=== PATIENT | male | born 1945 | race Caucasian/White ===

== ENCOUNTER 2017-02-14 08:00 | Outpatient (CLI) | payer MEDICARE, OTHER ==
[2017-02-14 12:55] LABS: BASOPHILS # (AUTO) 0.1 10^3/uL (0.0-0.1); BASOPHILS % (AUTO) 0.7 %; EOSINOPHILS # (AUTO) 0.5 10^3/uL (0.0-0.7); HCT - HEMATOCRIT 43.4 % (42.0-52.0); HGB - HEMOGLOBIN 14.7 g/dL (14.0-18.0); LYMPHOCYTES # (AUTO) 1.8 10^3/uL (1.5-3.5); LYMPHOCYTES % (AUTO) 25.3 %; MEAN CORPUSCULAR HEMOGLOBIN 31.5 pg (27.0-31.0); MEAN CORPUSCULAR HGB CONC 33.8 g/dL (32.0-36.0); MEAN CORPUSCULAR VOLUME 93.3 fL (80.0-94.0); MEAN PLATELET VOLUME 8.6 fL (7.4-11.4); MONOCYTES # (AUTO) 0.7 10^3/uL (0.0-1.0); MONOCYTES % (AUTO) 9.6 %; NEUTROPHILS % (AUTO) 57.4 %; RED BLOOD COUNT 4.65 10^6/uL (4.70-6.10); RED CELL DISTRIBUTION WIDTH 12.9 % (12.0-15.0)
[2017-02-14 13:28] LABS: ALBUMIN/GLOBULIN RATIO 1.5 (1.0-2.2); BUN - BLOOD UREA NITROGEN 19 mg/dL (6-20); CALCIUM 9.3 mg/dL (8.5-10.3); CARBON DIOXIDE - CO2 28 mmol/L (21-32); CHLORIDE 104 mmol/L (101-111); CHOL/HDL RATIO 3.2 (<5.0); CHOLESTEROL 198 mg/dL; CREATININE 1.1 mg/dL (0.6-1.2); GFR - MDRD 66 (>89); GLUCOSE 84 mg/dL (70-100); HDL CHOLESTEROL 62 mg/dL; LDL/HDL RATIO 1.9 (<3.6); POTASSIUM 4.2 mmol/L (3.5-5.0); SODIUM 140 mmol/L (135-145); TOTAL PROTEIN 7.6 g/dL (6.7-8.2); TRIGLYCERIDES 91 mg/dL; VLDL CHOLESTEROL 18 mg/dL
== END 2017-02-14 23:59 ==
LOC: LAB.WCP 08:00
PROVIDERS: ATTEND Family Medicine
DX: E78.5 Hyperlipidemia, unspecified (principal)
CPT/HCPCS: 36415; 80053; 80061; 84443; 85025

== ENCOUNTER 2017-07-07 08:35 | Outpatient (CLI) | payer MEDICARE, OTHER | END 2017-07-07 08:36 | disposition home or self-care (01) | LOC: SC 08:35 | PROVIDERS: ATTEND Nurse Practitioner Family | DX: G47.33 Obstructive sleep apnea (adult) (pediatric) (principal) | CPT/HCPCS: 99214; G0463; 99212 ==

== ENCOUNTER 2018-03-04 08:00 | Outpatient (CLI) | payer MEDICARE, OTHER ==
[2018-03-04 13:47] LABS: ALBUMIN 3.7 g/dL (3.2-5.5); ALBUMIN/GLOBULIN RATIO 1.1 (1.0-2.2); ALKALINE PHOSPHATASE 52 IU/L (42-121); ALT ALANINE AMINOTRANSFERASE 20 IU/L (10-60); AST ASPARTATE AMINOTRANSFERASE 23 IU/L (10-42); BILIRUBIN,TOTAL 0.5 mg/dL (0.2-1.0); BUN - BLOOD UREA NITROGEN 25 mg/dL (6-20); CALCIUM 9.1 mg/dL (8.5-10.3); CARBON DIOXIDE - CO2 25 mmol/L (21-32); CHLORIDE 104 mmol/L (101-111); CHOL/HDL RATIO 3.2 (<5.0); CHOLESTEROL 168 mg/dL; CREATININE 1.4 mg/dL (0.6-1.2); GFR - MDRD 50 (>89); GLUCOSE 85 mg/dL (70-100); HDL CHOLESTEROL 53 mg/dL; LDL CHOLESTEROL,CALCULATED 99 mg/dL; LDL/HDL RATIO 1.9 (<3.6); SODIUM 137 mmol/L (135-145); TOTAL PROTEIN 7.2 g/dL (6.7-8.2); VLDL CHOLESTEROL 16 mg/dL
== END 2018-03-04 08:01 | disposition home or self-care (01) ==
LOC: LAB.WCP 08:00
PROVIDERS: ATTEND Family Medicine
DX: E55.9 Vitamin D deficiency, unspecified (principal); I10 Essential (primary) hypertension; E04.1 Nontoxic single thyroid nodule; E78.5 Hyperlipidemia, unspecified
CPT/HCPCS: 36415; 80053; 80061; 82306; 83721; 84443

== ENCOUNTER 2018-03-19 08:17 | Outpatient (CLI) | payer MEDICARE, OTHER ==
[2018-03-19 12:46] LABS: CALCIUM 8.9 mg/dL (8.5-10.3); CREATININE 1.1 mg/dL (0.6-1.2)
== END 2018-03-19 08:18 ==
LOC: LAB.WCP 08:17
PROVIDERS: ATTEND Family Medicine
DX: I12.9 Hypertensive chronic kidney disease with stage 1 through stage 4 chronic kidney disease, or unspecified chronic kidney disease (principal); N18.9 Chronic kidney disease, unspecified
CPT/HCPCS: 36415; 80048

== ENCOUNTER 2018-05-18 08:08 | Outpatient (CLI) | payer MEDICARE, OTHER ==
--- NOTE | 2018-05-18 11:57 | Ultrasound Report ---
Reason: SYNCOPE AND COLLAPSE,ESSENTIAL HYPERTENSION Procedure Date: 05/18/2018 Accession Number: [id number] / [id number] Procedure: US - Carotid Doppler Complete CPT Code: FULL RESULT: EXAM: BILATERAL CAROTID AND VERTEBRAL ARTERY DUPLEX DOPPLER ULTRASOUND: EXAM DATE: 05/18/2018 08:59 AM CLINICAL HISTORY: Syncope and collapse, hyperlipidemia, essential hypertension. COMPARISON: None. TECHNIQUE: Grayscale imaging, color Doppler, and duplex spectral Doppler were used to evaluate the carotid and vertebral arteries bilaterally. Static images were obtained. FINDINGS: Minimally echogenic, subjectively insignificant plaque is identified at the right carotid bulb. No significant plaque is identified in the right or left common or internal carotid arteries. Normal antegrade flow is present in bilateral vertebral arteries. VELOCITIES (cm/sec): Right CCA mid: PSV 89 cm/sec CCA dist: PSV 79 cm/sec ICA prox: PSV 90 cm/sec, EDV 15 cm/sec ICA mid: PSV 85 cm/sec, EDV 20 cm/sec ICA dist: PSV 63 cm/sec, EDV 21 cm/sec ECA: PSV 103 cm/sec Vert: PSV 35 cm/sec ICA/CCA: 1.0 Left CCA mid: PSV 84 cm/sec CCA dist: PSV 86 cm/sec ICA prox: PSV 50 cm/sec, EDV 13 cm/sec ICA mid: PSV 64 cm/sec, EDV 16 cm/sec ICA dist: PSV 56 cm/sec, EDV 22 cm/sec ECA: PSV 73 cm/sec Vert: PSV 52 cm/sec ICA/CCA: 0.74 ICA diameter stenosis: Right: <50% by velocity and <70% by NASCET criteria. Left: <50% by velocity and <70% by NASCET criteria. IMPRESSION: 1. No significant bilateral carotid artery plaquing. 2. In the right carotid artery there are no elevated carotid artery velocities to suggest hemodynamically significant stenosis. 3. In the left carotid artery there are no elevated carotid artery velocities to suggest hemodynamically significant stenosis. 4. Normal antegrade flow is present in bilateral vertebral arteries. General Recommendations: Stenosis =50% ICA - Follow-up ultrasound 6-12 months Stenosis <50% ICA - High Risk Patient with plaque - Follow-up ultrasound 1-2 years Normal Study but High Risk Patient - Follow-up ultrasound 3-5 years Management recommendations and diagnostic criteria are based on current IAC endorsed standards in Carotid Artery Stenosis: Grayscale and Doppler Ultrasound Diagnosis. Validated velocity measurements with angiographic measurements and velocity criteria are extrapolated from diameter data as defined by the Society of Radiologists in Ultrasound Consensus Conference Radiology 2003; 229;340-346. RADIA
== END 2018-05-18 08:09 | disposition home or self-care (01) ==
LOC: DI 08:08
PROVIDERS: ATTEND Family Medicine
DX: R55 Syncope and collapse (principal); I10 Essential (primary) hypertension; E78.5 Hyperlipidemia, unspecified
CPT/HCPCS: 93306; 93880

== ENCOUNTER 2018-07-21 07:21 | Outpatient (CLI) | payer MEDICARE, OTHER | END 2018-07-21 07:22 | disposition short-term general hospital (02) | LOC: EMS 07:21 | PROVIDERS: ATTEND Surgery | DX: R55 Syncope and collapse (principal) | CPT/HCPCS: A0425; A0427; A0888 ==

== ENCOUNTER 2018-08-12 08:35 | Outpatient (CLI) | payer MEDICARE, OTHER | END 2018-08-12 08:36 | disposition home or self-care (01) | LOC: SC 08:35 | PROVIDERS: ATTEND Nurse Practitioner Family | DX: G47.33 Obstructive sleep apnea (adult) (pediatric) (principal) | CPT/HCPCS: 99214; G0463; 99212 ==

== ENCOUNTER 2019-07-07 15:08 | Outpatient (CLI) | payer MEDICARE, OTHER ==
[2019-07-07 16:16] VITALS: BP 110/64
--- NOTE | 2019-07-07 16:16 | SLEEP CARE CONSULTATION ---
Information from patient questionnaire entered by Shirley Lemos. I have reviewed and concur with the information entered by Shirley Lemos. This document represents the service I personally performed and the decisions made by me, Mirna Vazquez, RN, MSN, CANNERY TENDER ENGINEER. History of Present Illness Previous diagnosis: Moderate, Obstructive Sleep Apnea-Hypopnea Syndrome AHI: 15.6 Reason for follow up: annual (last seen 2018) Equipment type: CPAP Equipment obtained from: [employer] Mask style: Nasal (N20) Mask brand: Resmed Backup mask available: Yes Last cushion change: 2 weeks CPAP Compliance Data - Data Reviewed with Patient Average duration of nightly device use: 6.4 Compliance rate %: 99.4 (180 days) Current pressure setting (cmH2O): 4-6 Humidity settin Heated hose settin Average residual AHI: 3.9 Average large leak: 3 sec Subjective Patient concerns: denies: aerophagia, mask discomfort, air blowing in eyes, mask leak noise, condensation in mask/hose, nasal congestion, dry mouth, nose, throat, epistaxis Observed to snore while using device: Yes (occasionally) Current pressure setting perceived as: comfortable On therapy, patient: reports: sleeping better, awakening more refreshed, being more awake and alert during the day, more rested overall. denies: drowsiness while driving Initial [place] Sleepiness Scale score: 11 Current [place] Sleepiness Scale score: 7 Allergies and Home Medications Known drug allergies: No Home medication list reviewed: Yes Allergy and home medication list: Lisniopril 20mg tab one daily Mobic 15mg tab one prn daily Multivitamins Tab one daily Zyrtec Allergy (Cetirizine) 10mg tab one daily Vitamin D 2000unit tab two daily Review of Systems Review of systems same as previous: No (evaluated by lock plater for sycope - heart loop recorder implant) Physical Exam Blood Pressure: 110/64 Cuff size: long Heart Rate: 79 O2 Saturation: 96 Height: 5 ft 9.5 in Weight: 176 lb 3.2 oz Body Mass Index: 25.6 BMI Classification: Overweight Impression and Plan 1. Obstructive Sleep Apnea-Hypopnea Syndrome, moderate, with good treatment compliance and good apnea control. On CPAP therapy, the patient has better sleep quality and is more rested overall with increased sleep length of one hour. He is unsure if increased sleep length is due to new mask and improved comfort. 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 I had impressed the use of CPAP use with all sleep for maximum benefit of his treatment. For his snore, I will slightly increase his autoCPAP range to 5-7cmH20. I showed him how to upload new pressure range on sample CPAP. He is to contact me if the pressure change is uncomfortable. Yane cruz's apnea severity and rationale for treatment to reduce apnea, improve sleep quality and reduce cardiovascular and cerebrovascular events was reviewed. I also reviewed the benefit of consistent device use of CPAP for his hypertension. Since his apnea is more severe on his back, he was advised to avoid supine sleep if unable to use CPAP. * * Change CPAP pressure to 5-7 cmH2O * Notify me if snoring with mask or feeling that the pressure is too much or too little * Attempt to lose some weight * Return for follow up in 1 year , or sooner if concerns arise I spent 100% of this 25 minute visit face to face with the patient with greater than 50% of this was spent time counseling the patient and coordination of care.
== END 2019-07-07 15:09 | disposition home or self-care (01) ==
LOC: SC 15:08
PROVIDERS: ATTEND Nurse Practitioner Family
DX: G47.33 Obstructive sleep apnea (adult) (pediatric) (principal)
CPT/HCPCS: 99214; G0463; 99212

== ENCOUNTER 2020-06-07 13:44 | Outpatient (CLI) | payer MEDICARE, OTHER ==
[2020-06-07 14:42] VITALS: BP 120/60
--- NOTE | 2020-06-07 14:42 | SLEEP CARE CONSULTATION ---
Information from patient questionnaire entered by Shirley Lemos. I have reviewed and concur with the information entered by Shirley Lemos. This document represents the service I personally performed and the decisions made by me, Mirna Vazquez, RN, MSN, EDUCATIONAL PROGRAM ASSISTANT. History of Present Illness Service Date and Time: 06/07/2020 1344 Previous diagnosis: Moderate, Obstructive Sleep Apnea-Hypopnea Syndrome AHI: 15.6 (in 2010) Reason for follow up: annual Equipment type: CPAP Equipment obtained from: [employer] (getting supplies as neede) Mask style: Nasal (N20) Backup mask available: Yes (old mask) Last cushion change: every 2 weeks Prior sleep studies: Yes Year and Where: 2010 - [facility] Type of Sleep Study: Polysomnography CPAP Compliance Data - Data Reviewed with Patient Average duration of nightly device use: 6.25 Compliance rate %: 98.9 (180 days) Current pressure setting (cmH2O): 5-7 Humidity settin Heated hose settin Average residual AHI: 3.0 Average large leak: 2 sec Subjective Patient concerns: reports: other (was sleeping through the night until last couple months when started waking after 4-5 hours and generally is able to go back to sleep. But he does not always put mask back on after using bathroom and sleeps on side. ). denies: aerophagia, mask discomfort, air blowing in eyes, mask leak noise, condensation in mask/hose, nasal congestion, dry mouth, nose, throat, epistaxis Observed to snore while using device: Yes (only when forgets to mask on) Current pressure setting perceived as: comfortable On therapy, patient: reports: sleeping better, awakening more refreshed, being more awake and alert during the day, more rested overall. denies: drowsiness while driving Initial [place] Sleepiness Scale score: 11 (in 2010) Current [place] Sleepiness Scale score: 9 Allergies and Home Medications Known drug allergies: No Home medication list reviewed: Yes (new eye Preservision vitamin with luetin added ) Review of Systems Review of systems same as previous: No (recently diagnosed with cataracts and referred to surgeon, new vitamins) Physical Exam Blood Pressure: 120/60 Cuff size: regular Heart Rate: 76 O2 Saturation: 94 Height: 5 ft 9.5 in Weight: 170 lb 12.8 oz Weight change since last visit: lost 5 pounds Body Mass Index: 24.8 BMI Classification: Healthy weight Impression and Plan 1. Obstructive Sleep Apnea-Hypopnea Syndrome, moderate, with good treatment compliance and good apnea control. On CPAP therapy, the patient has better sleep quality and is more rested overall. Patient has been taking off mask after using the bathroom. His sleep study was reviewed. He is advised to put his mask back on after waking to use the bathroom to reduce apnea risk. I explained even though he sleeps on his side where his apnea is mild ( supine is severe) there is increased risk of apnea in REM sleep which is more prevalent in later sleep. Using his mask up until the time he awakens will increase refreshment of sleep. He has lost some weight and his current pressure range should accommodate for goal of losing 5 more pounds. Symptoms to report for pressure change with rationale explained. Patient's apnea severity and rationale for treatment to reduce apnea, improve sleep quality and reduce cardiovascular and cerebrovasc ular events was reviewed. I also reviewed the benefit of consistent device use of CPAP for hypertension. Take CPAP machine with him for any surgery with rationale explained. He is to discuss with his eye surgeon if needed for his upcoming surgery. * Continue CPAP pressure at 5-7 cmH2O * Use CPAP with all sleep. * Notify me if snoring with mask or feeling that the pressure is too much or too little * Call this office if any problems using CPAP * Return for follow up in 1 year, or sooner if concerns arise Visit Type: In Office Time Spent with Patient (minutes): 28 Provider Statement: I spent 100% of the Face to Face Visit with the patient with greater than 50% spent counseling the patient and coordination of care.
== END 2020-06-07 13:45 | disposition home or self-care (01) ==
LOC: SC 13:44
PROVIDERS: ATTEND Nurse Practitioner Family
DX: G47.33 Obstructive sleep apnea (adult) (pediatric) (principal)
CPT/HCPCS: 99214; G0463; 99212

== ENCOUNTER 2020-06-12 16:21 | Outpatient (CLI) | payer MEDICARE, OTHER | END 2020-06-12 16:22 | disposition home or self-care (01) | LOC: COV 16:21 | PROVIDERS: ATTEND Family Medicine | DX: Z20.828 Contact with and (suspected) exposure to other viral communicable diseases (principal) ==

== ENCOUNTER 2020-06-24 14:07 | Outpatient (CLI) | payer MEDICARE, OTHER | END 2020-06-24 14:08 | disposition short-term general hospital (02) | LOC: EMS 14:07 | PROVIDERS: ATTEND Surgery | DX: R55 Syncope and collapse (principal) | CPT/HCPCS: A0425; A0429 ==

== ENCOUNTER 2021-05-30 10:11 | Outpatient (CLI) | payer MEDICARE, OTHER ==
[2021-05-30 10:56] VITALS: BP 106/57
--- NOTE | 2021-05-30 10:56 | SLEEP CARE CONSULTATION ---
Information from patient questionnaire entered by Ute Batista. I have reviewed and concur with the information entered by Ute Batista. This document represents the service I personally performed and the decisions made by me, Margareth Suarez ARNP. History of Present Illness Service Date and Time: 05/30/2021 1011 Previous diagnosis: Moderate, Obstructive Sleep Apnea-Hypopnea Syndrome AHI: 15.6 (in 2010) Reason for follow up: annual Equipment type: CPAP Equipment obtained from: [facility] (getting supplies as needed) Mask style: Nasal (N20) Backup mask available: Yes (Old mask) Last cushion change: 1 week ago Prior sleep studies: Yes Year and Where: 2010 [facility] Type of Sleep Study: Polysomnography HPI additional information: SAM PATIÑO was diagnosed to have moderate, AHI 15.6, obstructive sleep apnea-hypopnea syndrome and returned today for CPAP therapy annual follow-up. Sleep Study - Results Type of Sleep Study: Polysomnography Prior sleep studies: Yes Year and Where: 2010 [facility] CPAP Compliance Data - Data Reviewed with Patient Average duration of nightly device use: 5 hours 47 minutes Compliance rate %: 96.1 Current pressure setting (cmH2O): 5-7 Humidity settin Heated hose settin Average residual AHI: 3.1 Central apnea: 0.2 Obstructive apnea: 0.3 Hypopnea: 2.6 Average large leak: 1 second Subjective Patient concerns: reports: aerophagia (having GI issues, most likely not due to CPAP). denies: mask discomfort, air blowing in eyes, mask leak noise, condensation in mask/hose, nasal congestion, dry mouth, nose, throat, epistaxis, other Observed to snore while using device: Yes (once in a while, per ) Current pressure setting perceived as: too low On therapy, patient: reports: sleeping better, awakening more refreshed, being more awake and alert during the day, more rested overall. denies: drowsiness while driving Initial [place] Sleepiness Scale score: 11 (in 2010) Current [place] Sleepiness Scale score: 9 Allergies and Home Medications Home medication list reviewed: Yes (Pantoprazole for GI issue) Review of Systems Review of systems same as previous: No (GI issues (diarrhea/gas/bloating/aching in stomach)) Physical Exam Blood Pressure: 106/57 Cuff size: wrist Heart Rate: 71 O2 Saturation: 95 Height: 5 ft 9.5 in Weight: 165 lb Body Mass Index: 24.0 BMI Classification: Healthy weight Impression and Plan 1. Obstructive Sleep Apnea-Hypopnea Syndrome, moderate, with good treatment compliance and good apnea control. On CPAP therapy, the patient has better sleep quality and is more rested overall. His has complained of occasional snoring with his mask on. To resolve snore, the CPAP pressure will be changed to 6-8 cmH20. Patient advised to contact this office if pressure change uncomfortable or if pressure change does not resolve snore. I informed the patient that [employer] has a recall on several devices like the patients machine. Patient was encouraged to register their device online with [employer] for the recall to see if their device is affected. If their device is affected they should start a claim. Patient denies any black particles seen in machine or hoses, any unusual odors coming from device. Patient has not experienced any physical symptoms such as upper airway irritation, headache, skin or eye irritation, asthma, nausea/vomiting, difficulty breathing or chest pain. Patient informed that they may use an inline CPAP filter that they can obtain online to reduce chance of any particles being inhaled or ingested. We discussed thoroughly the health risks of not using the CPAP versus continuing use with the filter in place. If patient is not able to sleep due to waking up choking, gasping for air or other respiratory distress that they may decide to continue using it until it is either replaced or repaired. Since the patients current machine is at least 5 years old the patient is opting to update their device with a device that is not on the recall. Patient voiced understanding and agreement with plan. Patient's apnea severity and rationale for treatment to reduce apnea, improve sleep quality and reduce cardiovascular and cerebrovascular events was reviewed. I also reviewed the benefit of consistent device use of CPAP for hypertension. * Change auto CPAP pressure to 6-8 cmH2O * Update device * Notify me if snoring with mask or feeling that the pressure is too much or too little * Attempt to lose weight * Call this office if any problems using CPAP * Return for follow up one month after obtaining new device, or sooner if concerns arise Counseling Topics: Spare mask, Weight control Visit Type: In Office Time Spent with Patient (minutes): 23 Provider Statement: I spent 100% of the Face to Face Visit with the patient with greater than 50% spent counseling the patient and coordination of care.
== END 2021-05-30 10:12 | disposition home or self-care (01) ==
LOC: SC 10:11
PROVIDERS: ATTEND Nurse Practitioner Family
DX: G47.33 Obstructive sleep apnea (adult) (pediatric) (principal)
CPT/HCPCS: 99213; G0463; 99212

== ENCOUNTER 2021-12-07 10:18 | Outpatient (CLI) | payer MEDICARE, OTHER ==
[2021-12-07 11:02] VITALS: BP 130/81
--- NOTE | 2021-12-07 11:02 | SLEEP CARE CONSULTATION ---
Information from patient questionnaire entered by Tomasa Hart MA. I have reviewed and concur with the information entered by Tomasa Hart MA. This document represents the service I personally performed and the decisions made by , Margareth Suarez ARNP. History of Present Illness Service Date and Time: 12/07/2021 1018 Previous diagnosis: Moderate, Obstructive Sleep Apnea-Hypopnea Syndrome AHI: 15.6 (in 2010) Reason for follow up: first compliance (SET UP DATE 09/13/21, REPL DEVICE, RESMED, ), first compliance after device update Equipment type: CPAP Equipment obtained from: [employer] (getting supplies as needed) Mask style: Nasal (N20) Backup mask available: Yes (old mask) Last cushion change: 2 weeks Prior sleep studies: Yes Year and Where: 2010 - [facility] Type of Sleep Study: Polysomnography HPI additional information: SAM PATIÑO was diagnosed to have moderate, AHI 15.6, obstructive sleep apnea-hypopnea syndrome and returned today for CPAP therapy first compliance after updating device follow-up. Sleep Study - Results Type of Sleep Study: Polysomnography Prior sleep studies: Yes Year and Where: 2010 - [facility] CPAP Compliance Data - Data Reviewed with Patient Average duration of nightly device use: 7 HOURS 16 MINUTES Compliance rate %: 100 Current pressure setting (cmH2O): 6-8 Average residual AHI: 1.7 Central apnea: 1.2 Obstructive apnea: 0 Hypopnea: 0.1 Subjective Patient concerns: reports: mask leak noise. denies: aerophagia, mask discomfort, air blowing in eyes, condensation in mask/hose, nasal congestion, dry mouth, nose, throat, epistaxis, other Observed to snore while using device: No Current pressure setting perceived as: comfortable (may be to low) On therapy, patient: reports: sleeping better, awakening more refreshed, being more awake and alert during the day, more rested overall. denies: drowsiness while driving Initial [place] Sleepiness Scale score: 11 (in 2010) Current [place] Sleepiness Scale score: 7 (11/2021) Allergies and Home Medications Home medication list reviewed: Yes (Omeprazole) Review of Systems Review of systems same as previous: No (Esophagitis - seeing dye machine tender) Physical Exam Vital signs obtained and entered by: Ezequiel HART CMA AAHI Blood Pressure: 130/81 (right, pulse 73, resp 18, ) Cuff size: wrist Heart Rate: 74 O2 Saturation: 98 (n94 mask) Height: 5 ft 9.5 in Weight: 157 lb Weight change since last visit: losing weight, w/o trying seeing a gastro provider. Body Mass Index: 22.8 BMI Classification: Healthy weight Impression and Plan 1. Obstructive Sleep Apnea-Hypopnea Syndrome, moderate, with excellent treatment compliance and good apnea control. On CPAP therapy, the patient has better sleep quality and is more rested overall. Patient is happy with his new device. He states he is able to sleep through the night with it. He states he feels as if the pressure may be a little low. After discussion, I will increase his pressure to 7-9 cm H2O for patient comfort. He will notify me for further changes if he feels the pressure to be more uncomfortable. Patient's apnea severity and rationale for treatment to reduce apnea, improve sleep quality and reduce cardiovascular and cerebrovascular events was reviewed. I also reviewed the benefit of consistent device use of CPAP for hypertension. * Change auto CPAP pressure to 7-9 cmH2O * Notify me if snoring with mask or feeling that the pressure is too much or too little * Call this office if any problems using CPAP * Return for follow up in 1 year, or sooner if concerns arise Counseling Topics: Spare mask Visit Type: In Office Time Spent with Patient (minutes): 20 Provider Statement: I spent 100% of the Face to Face Visit with the patient with greater than 50% spent counseling the patient and coordination of care.
== END 2021-12-07 10:19 | disposition home or self-care (01) ==
LOC: SC 10:18
PROVIDERS: ATTEND Internal Medicine Pulmonary Disease
DX: G47.33 Obstructive sleep apnea (adult) (pediatric) (principal)
CPT/HCPCS: 99213; G0463; 99212

== ENCOUNTER 2022-12-12 09:01 | Outpatient (CLI) | payer MEDICARE, OTHER ==
[2022-12-12 09:37] VITALS: BP 82/44
--- NOTE | 2022-12-12 09:37 | SLEEP CARE CONSULTATION ---
Information from patient questionnaire entered by Donald Roman. I have reviewed and concur with the information entered by Donald Roman. This document represents the service I personally performed and the decisions made by me, Margareth Suarez ARNP. History of Present Illness Service Date and Time: 12/12/2022 0901 Previous diagnosis: Moderate, Obstructive Sleep Apnea-Hypopnea Syndrome AHI: 15.6 (in 2010) Reason for follow up: annual (LAST SEEN 11/2021) Equipment type: CPAP (RESMED Airsense 11, s/u 08/2021) Equipment obtained from: [employer] (getting supplies as needed) Mask style: Nasal (N20) Mask brand: Resmed Backup mask available: Yes (old mask) Last cushion change: 5 days ago Prior sleep studies: Yes Year and Where: 2010 - [facility] Type of Sleep Study: Polysomnography HPI additional information: SAM PATIÑO was diagnosed to have moderate, AHI 15.6, obstructive sleep apnea-hypopnea syndrome and returned today for CPAP therapy annual follow-up. Sleep Study - Results Type of Sleep Study: Polysomnography Prior sleep studies: Yes Year and Where: 2010 - [facility] CPAP Compliance Data - Data Reviewed with Patient Average duration of nightly device use: 6 HRS 34 MINS Compliance rate %: 97 (06/14/22-12/10/22; 180/180 days used) Current pressure setting (cmH2O): 7-8 Average residual AHI: 1.8 Central apnea: 1.1 Obstructive apnea: 0.1 Average large leak: 5.4 lpm Subjective Patient concerns: denies: aerophagia, mask discomfort, air blowing in eyes, mask leak noise, condensation in mask/hose, nasal congestion, dry mouth, nose, throat, epistaxis Observed to snore while using device: Yes (sometimes per ) Current pressure setting perceived as: comfortable On therapy, patient: reports: sleeping better, awakening more refreshed, being more awake and alert during the day, more rested overall. denies: drowsiness while driving Initial [place] Sleepiness Scale score: 11 (in 2010) Current [place] Sleepiness Scale score: 7 (12/12/22) Allergies and Home Medications Known drug allergies: No Drug allergies reviewed: Yes Home medication list reviewed: Yes (no changes) Review of Systems Review of systems same as previous: Yes (no changes) Physical Exam Vital signs obtained and entered by: DONALD Mcdowell MA Blood Pressure: 82/44 (recheck 118/60) Cuff size: regular (Left arm) Heart Rate: 62 O2 Saturation: 98 Height: 5 ft 9.5 in Weight: 161 lb Weight change since last visit: 5 lb gain Body Mass Index: 23.4 BMI Classification: Normal Impression and Plan 1. Obstructive Sleep Apnea-Hypopnea Syndrome, moderate, with good treatment compliance and good apnea control. On CPAP therapy, the patient has better sleep quality and is more rested overall. Patient has significant improvement of his sleep apnea and is satisfied with current CPAP therapy pressure. Patient denies problems with oral dryness, nasal congestion, epistaxis, skin irritation or aerophagia. He asks about Inspire therapy that he sees in commercials and I explained this to him. He is just curious and does not want to change therapy at this time. I will follow up with him next year. Patient's apnea severity and rationale for treatment to reduce apnea, improve sleep quality and reduce cardiovascular and cerebrovascular events was reviewed. I also reviewed the benefit of consistent device use of CPAP for hypertension. * Continue auto CPAP pressure at 7-8 cmH2O * Update supplies * Notify me if snoring with mask or feeling that the pressure is too much or too little * Maintain a healthy weight * Call this office if any problems using CPAP * Return for follow up in 1 year, or sooner if concerns arise Counseling Topics: Spare mask, Weight control Visit Type: In Office Time Spent with Patient (minutes): 20 Provider Statement: I spent 100% of the Face to Face Visit with the patient with greater than 50% spent counseling the patient and coordination of care.
== END 2022-12-12 09:02 | disposition home or self-care (01) ==
LOC: SC 09:01
PROVIDERS: ATTEND Nurse Practitioner Family
DX: G47.33 Obstructive sleep apnea (adult) (pediatric) (principal)
CPT/HCPCS: 99213; G0463; 99212

== ENCOUNTER 2023-12-19 09:07 | Outpatient (CLI) | payer MEDICARE, OTHER ==
--- NOTE | 2023-12-19 09:26 | Sleep Patient Instructions ---
Sleep Center Visit Summary - Patient Visit Information Reason for Visit: Annual follow-up - Patient Instructions Additional Instructions: You will continue with CPAP therapy with pressure set at 7-8 cmH2O. A supply prescription will be updated with your DME. Please follow up with the sleep care office in 1 year. - Clinic Information Contact: [facility] [address] [place] [address] [email or web address] T: [phone]
--- NOTE | 2023-12-19 09:29 | SLEEP CARE CONSULTATION ---
Information from patient questionnaire entered by Beronica Roman. I have reviewed and concur with the information entered by Beronica Roman. This document represents the service I personally performed and the decisions made by me, Margareth Suarez ARNP. History of Present Illness Service Date and Time: 12/19/2023 0907 Previous diagnosis: Moderate, Obstructive Sleep Apnea-Hypopnea Syndrome AHI: 15.6 (in 2010) Reason for follow up: annual (LAST SEEN 11/2022) Equipment type: CPAP (RESMED Airsense 11, s/u 08/2021) Equipment obtained from: [facility] (getting supplies as needed) Mask style: Nasal (N20) Mask brand: Resmed Backup mask available: Yes Last cushion change: 10 days ago Prior sleep studies: Yes Year and Where: 2010 - [facility] Type of Sleep Study: Polysomnography HPI additional information: SAM PATIÑO was diagnosed to have moderate, AHI 15.6, obstructive sleep apnea-hypopnea syndrome and returned today for CPAP therapy annual follow-up. Sleep Study - Results Type of Sleep Study: Polysomnography Prior sleep studies: Yes Year and Where: 2010 - [facility] CPAP Compliance Data - Data Reviewed with Patient Average duration of nightly device use: 6 HRS 8 MINS Compliance rate %: 99 (12/17/22-11/2323; 362/365 days used) Current pressure setting (cmH2O): 7-8 Average residual AHI: 1.4 Central apnea: 0.6 Obstructive apnea: 0.2 Hypopnea: 0.6 Average large leak: 6 L/min Subjective Patient concerns: reports: dry mouth, nose, throat (very occasional). denies: aerophagia, mask discomfort, air blowing in eyes, mask leak noise, condensation in mask/hose, nasal congestion, epistaxis Observed to snore while using device: Yes (occasionally according to ) Current pressure setting perceived as: comfortable On therapy, patient: reports: sleeping better, awakening more refreshed, being more awake and alert during the day, more rested overall. denies: drowsiness while driving Initial [place] Sleepiness Scale score: 11 (in 2010) Current [place] Sleepiness Scale score: 8 Allergies and Home Medications Known drug allergies: No Drug allergies reviewed: Yes Home medication list reviewed: Yes (stopped lisinopril) Review of Systems Review of systems same as previous: Yes (no changes) Physical Exam Vital signs obtained and entered by: MARGARETH BAH Blood Pressure: 132/76 Cuff size: regular (right arm) Heart Rate: 84 O2 Saturation: 98 Height: 5 ft 9.5 in Weight: 168 lb 12.8 oz Body Mass Index: 24.5 BMI Classification: Normal Impression and Plan 1. Obstructive Sleep Apnea-Hypopnea Syndrome, moderate, with good treatment compliance and good apnea control. On CPAP therapy, the patient has better sleep quality and is more rested overall. Patient says he is moving to the [facility] and will need to transfer care of his supplies. He will be moving in January. Patient has significant improvement of their sleep apnea and is satisfied with current CPAP therapy. Patient denies problems with oral dryness, nasal congestion, epistaxis, skin irritation or aerophagia. Patient's apnea severity and rationale for treatment to reduce apnea, improve sleep quality and reduce cardiovascular and cerebrovascular events was reviewed. I also reviewed the benefit of consistent device use of CPAP for hypertension. * Continue auto CPAP pressure at 7-8 cmH2O * Transfer DME * Update supply prescription * Notify me if snoring with mask or feeling that the pressure is too much or too little * Call this office if any problems using CPAP * Return for follow up in 12 months, or sooner if concerns arise Counseling Topics: Spare mask Prescriptions: Device supplies Follow up with Sleep Care in: 1 year Visit Type: In Office Time Spent with Patient (minutes): 20 Provider Statement: I spent 100% of the Face to Face Visit with the patient with greater than 50% spent counseling the patient and coordination of care.
[2023-12-19 09:37] VITALS: BP 132/76; O2SAT 98
== END 2023-12-19 09:08 | disposition home or self-care (01) ==
LOC: SC 09:07
PROVIDERS: ATTEND Nurse Practitioner Family
DX: G47.33 Obstructive sleep apnea (adult) (pediatric) (principal)
CPT/HCPCS: 99213; G0463; 99212